=== PATIENT | male | born 1970 | race Caucasian/White ===

== ENCOUNTER 2016-11-28 15:12 | Emergency (ER) | payer SELFPAY ==
[2016-11-28 15:23] VITALS: BP 148/81
--- NOTE | 2016-11-28 16:27 | UC ---
Skin Complaint HPI - HPI Summary HPI Summary: 2 day history of increasing pain and erythema in the left forefoot. He began treating tinea pedis several days ago, and has been soaking his foot in epsom salts. He poked a pustular area on the proximal left second digit, and swelling and redness increased after that. No fever, does not feel unwell. - History of Current Complaint Chief Complaint: UCSkin Time Seen by Provider: 11/28/16 16:16 Stated Complaint: LFT FOOT PAIN/SWELLING Hx Obtained From: Patient Onset/Duration: Gradual Onset, Lasting Days - 2 Timing: Constant Onset Severity: Mild Current Severity: Moderate Location: Discrete - left forefoot. Aggravating: Touch Alleviating: Other - Epsom salt soaks and elevation. Associated Signs & Symptoms: Positive: Negative Related History: Other: - tinea pedis left foot interdigital area. - Allergy/Home Medications Allergies/Adverse Reactions: Allergies Allergy/AdvReac Type Severity Reaction Status Date / Time No Known Allergies Allergy Verified 11/28/16 15:18 Review of Systems Constitutional: Negative - feels well, normal appetite, no systemic symptoms. Skin: Other - erythema and pain left forefoot. Eyes: Negative ENT: Negative Respiratory: Negative Cardiovascular: Negative Gastrointestinal: Negative Genitourinary: Negative Motor: Negative Neurovascular: Negative Musculoskeletal: Other: - no ankle or midfoot pain Neurological: Negative Psychological: Negative All Other Systems Reviewed And Are Negative: Yes PMH/Surg Hx/FS Hx/Imm Hx Previously Healthy: Yes - Surgical History Surgical History: None - Family History Known Family History: Positive: Other - father of leukemia, mother of lung cancer. - Social History Occupation: Employed Full-time Alcohol Use: None Substance Use Type: None Smoking Status (MU): Never Smoked Tobacco Physical Exam Triage Information Reviewed: Yes Appearance: Well-Appearing, Pain Distress - mild Vital Signs: Initial Vital Signs Temp 99.1 F 11/28/16 15:19 Pulse 71 11/28/16 15:19 Resp 16 11/28/16 15:19 BP 148/81 11/28/16 15:19 Pulse Ox 98 11/28/16 15:19 ENT: Positive: Pharynx normal Neck: Positive: Supple, Nontender, No Lymphadenopathy Respiratory: Positive: Lungs clear, Normal breath sounds Cardiovascular: Positive: RRR, No Murmur Musculoskeletal: Positive: Other: - full rom left ankle, no pain, no erythema. Psychological Exam: Normal Skin Exam: Other - left forefoot with tinea pedis and onychomycosis Ertyhema and swelling over 13 x 10 cm area with swelling. No pain with passive movement of digits. Course/Dx - Course Course Of Treatment: augmentin for cellulitis left foot - Diagnoses Provider Diagnoses: cellulitis left foot. Discharge - Discharge Plan Condition: Stable Disposition: HOME Prescriptions: Amoxicillin/Clavulanate TAB* [Augmentin TAB 875*] 875 mg PO BID #20 tab Patient Education Materials: Cellulitis (ED) Referrals: Rinku Ralph MD [Primary Care Provider] - Additional Instructions: The most likely source of infection is from the athlete's foot causing small fissures in the skin. Begin augmentin for treatment of cellulitis. The redness should begin to regress on the second day of treatment. If the redness increases rapidly and you develop a fever, return for re-evaluation. Continue epsom salt soaks twice daily and treatment of athlete's foot. The antibiotic can cause some diarrhes--probiotics can help to decrease this.
== END 2016-11-28 16:39 | disposition home or self-care (01) ==
LOC: UCCORT 15:12
DX: L03.116 Cellulitis of left lower limb (principal)
CPT/HCPCS: 99202; G0463